=== PATIENT | female | born 1985 | race Caucasian/White ===

== ENCOUNTER 2016-04-19 12:59 | Outpatient (CLI) | payer OTHER ==
[~2016-04-19 12:59] MED LIST: CYCLOBENZAPRINE10 MG PO; EXCEDRIN MIGRAINE; MULTIVITAMIN1 TAB PO; NEURONTIN100 MG PO; TRAMADOL HCL50 MG PO; VICODIN EQUIVAL1 TAB PO; VITAMIN D-31000 UNIT PO; ZOLOFT50 MG PO
== END 2016-04-19 23:00 ==
LOC: LAB SRH 12:59
DX: N93.9 Abnormal uterine and vaginal bleeding, unspecified (principal)
CPT/HCPCS: 90001; 90047; 90074; 90155; 90364; 91004; 92863; 95059; 98428

== ENCOUNTER 2016-04-21 05:26 | Day surgery (SDC) | payer OTHER ==
--- NOTE | 2016-04-16 20:03 | HISTORY AND PHYSICAL ---
ADMITTED: 04/21/2016 CHIEF COMPLAINT: 1. Irregular heavy bleeding HISTORY OF PRESENT ILLNESS: This patient had a hysteroscopy, D&C, diagnostic laparoscopy on 05/28/2015. She was noted to have some prominent vasculature in the pelvis and a smaller of endometriosis in the left pelvis. The uterine cavity had, what initially appeared to be, polyps and then was thought to possibly be tissue raised by the dilators. However, the pathology report returned showing endometrial polyps that were benign. Since her surgery, she has continued to have irregular heavy bleeding with the bleeding lasting up to 17 days. An ultrasound was done 04/08/2015 measuring the uterus at 7.8 cm, anteverted, anteflexed. The endometrium measured 14 mm, and the ovaries were normal in appearance. Options for further evaluation and treatment have been discussed with her and she has chosen to schedule for a repeat hysteroscopy and D&C, this time with an ablation as well. She is aware that the ablation is not compatible with future childbearing, but is not considered adequate control. She is currently not using control, but has not been sexually active for at least 3 weeks prior to her surgery. The procedure has been explained to her, along with the risks and benefits. Surgical risks have also been discussed with her including infection, bleeding, damage to her structures, anesthesia, and the possibility of further surgery at the time or in the future. Informed consent has been signed. MEDICAL/SURGICAL HISTORY: Menstrual history: Includes menarche at age 15. Her last period was 03/29/2016. Obstetrical history: Includes 2 vaginal deliveries in 2007 and 2010. Past surgical history: Hysteroscopy, D&C, diagnostic laparoscopy 05/28/2015. Past medical history: Fibromyalgia, bipolar/depression, acid reflux. MEDICATIONS: 1. Cyclobenzaprine 5 mg per day. 2. Gabapentin 300 mg daily. 3. Omeprazole 20 mg daily. 4. Sertraline 100 mg daily. 5. Tramadol 50 mg every 6 hours as needed. 6. Gabapentin 300 mg 3 times daily. ALLERGIES: 1. NO KNOWN DRUG ALLERGIES. SOCIAL HISTORY: She is , G2, P2. Denies tobacco and drug use. Reports occasional alcohol intake. FAMILY HISTORY: Her parents and siblings are all alive. Her father has diabetes. Her maternal grandfather also has diabetes and has a history of lung cancer. She denies any family history of hypertension, heart disease or stroke. REVIEW OF SYSTEMS: She denies headache, ear pain, throat pain, chest pain, shortness of breath, digestive disorders and joint and extremity problems. PHYSICAL EXAMINATION: VITAL SIGNS: She is 5 foot 1 inch, weighs 151. Blood pressure 102/70, pulse 62, temperature 98.1. GENERAL: She is well developed, well nourished, alert, and oriented. HEENT: Within normal limits. LUNGS: Normal. HEART: Normal. ABDOMEN: Soft, nondistended. EXTREMITIES: No clubbing, cyanosis, or edema. IMPRESSION: 1. Abnormal uterine bleeding. 2. History of endometrial polyps. PLAN: Hysteroscopy, dilatation and curettage, ablation, scheduled for 2016. Informed consent has been signed.
[2016-04-21] MEDS ORDERED: IBUPROFEN400 MG PO (08:53)
[2016-04-21] MEDS ORDERED: VICODIN EQUIVAL1 TAB PO (08:54)
--- NOTE | 2016-04-21 08:55 | Provider's Discharge Care Plan ---
Problem, Goal, Plan Problem List 1. Post-op pain Goals: Improve function Instructions: Follow up as directed
--- NOTE | 2016-04-21 08:55 | Provider's Discharge Care Plan ---
Problem, Goal, Plan Problem List 1. Post-op pain Goals: Improve function Instructions: Follow up as directed
--- NOTE | 2016-04-21 10:31 | OPERATIVE REPORT ---
DATE OF SURGERY: 04/21/2016 SURGEON: Ryann Noe DO REHABILITATION MANAGER: None. PREOPERATIVE DIAGNOSES: 1. Abnormal uterine bleeding 2. History of endometrial polyps POSTOPERATIVE DIAGNOSES: 1. Abnormal uterine bleeding 2. Endometrial polyps 3. Lower endocervical polyp PROCEDURES PERFORMED: 1. Hysteroscopy 2. Dilation and curettage 3. Polypectomy with forceps 4. NovaSure endometrial ablation ANESTHESIA: LMA. COMPLICATIONS: None. CONDITION: Stable. ESTIMATED BLOOD LOSS: Minimal. FLUIDS: 700 mL of LR. Blood administered: None. DRAINS: 0. URINE OUTPUT: 50 mL preoperatively. PATHOLOGY SPECIMEN: Endometrial polyps, endocervical polyp, endocervical curettings, endometrial curettings. IMPLANTS/GRAFTS: None. SURGICAL FINDINGS: Uterus sounded to 8 cm, 3 of which were the cervix. Polyps in the endometrium and 1 small one in the lower endocervical canal, just inside the os. Abundant endometrial tissue. SURGICAL TECHNIQUE: The patient was taken to the operating room where her anesthesia was obtained. She was prepped and draped in the normal sterile fashion in the lithotomy position. A pelvic exam under anesthesia was normal, and a sterile speculum was placed. The anterior cervical lip was grasped with a single-toothed tenaculum. There was a very small amount of descensus but fairly minimal. The cervix was circumferentially injected with 0.5% Marcaine using approximately 10 mL and was then serially dilated to a #8 dilator. The hysteroscope was advanced into the endocervical canal. There was a very small polyp visible just inside the os, and the remainder of the endocervical canal was clear. On entry into the endometrial cavity, there were several polypoid masses visible as well as some tissue that had been disturbed by the dilators. Polyp forceps were used to remove the 2 visible polyps. The scope was replaced and those polyps were confirmed to have been removed. The scope was again removed and the endocervical curettings were obtained, followed by endometrial curettings, which were abundant. The ablation wand was then positioned with a length of 5 cm and a measured width of 3.7 cm. The ablation was performed at a power of 102, lasting 1 minute 17 seconds. Throughout the procedure, there was initially some reddish tissue in the vacuum system, and this slowed in volume and cleared in color during the procedure. On completion of the ablation, the wand was removed and necrotic tissue was visible on the mesh. The tenaculum was removed and a very small amount of bleeding resolved with direct pressure. All instruments were then removed from the patient, and she was awakened from her anesthesia and taken to the recovery room in stable condition.
== END 2016-04-21 11:30 | disposition home or self-care (01) ==
LOC: OR SRH 05:26 → SCU SRH 06:18
PROVIDERS: Obstetrics & Gynecology
PROC: 0U5B8ZZ Destruction of Endometrium, Via Natural or Artificial Opening Endoscopic (ICD-10-PCS; principal; 2016-04-21 07:30)
PROC: 0UB98ZX Excision of Uterus, Via Natural or Artificial Opening Endoscopic, Diagnostic (ICD-10-PCS; principal; 2016-04-21 07:30)
PROC: 0UDB8ZX Extraction of Endometrium, Via Natural or Artificial Opening Endoscopic, Diagnostic (ICD-10-PCS; principal; 2016-04-21 07:30)
DX: N84.0 Polyp of corpus uteri (principal); N93.9 Abnormal uterine and vaginal bleeding, unspecified
CPT/HCPCS: 29240; 50002; 60001; 70002; 80575; 83433; 84551